=== PATIENT | female | born 1945 | race Caucasian/White ===

== ENCOUNTER 2025-02-23 08:21 | Inpatient (IN) | payer MEDICARE, SELFPAY ==
[2025-02-20] VITALS (12 sets, daily range): BP systolic 110–142; BP diastolic 56–87; PULSE 81; BMI 24.9; BMI 25.3
[2025-02-20 16:29] LABS: % Basophils 0.8 % (0-2); % Eosinophils 2.4 % (0-6); % Immature Granulocytes 0.3 % (0-0.5); % Monocytes 6.9 % (1.7-9.3); % Neutrophils 62.6 % (42.2-75.2); Absolute Basophils 0.1 10^3/uL (0-0.2); Absolute Eosinophils 0.2 10^3/uL (0-0.7); Absolute Lymphocytes 2.4 10^3/uL (1.2-3.4); Absolute Monocytes 0.6 10^3/uL (0.1-0.6); Absolute Neutrophils 5.6 10^3/uL (1.4-6.5); Hematocrit 42.2 % (37.0-47.0); Hemoglobin 14.1 g/dL (12.0-16.0); Mean Corp Hgb Conc. 33.4 g/dL (33.0-37.0); Mean Corpuscular Hgb 28.3 pg (27.0-31.0); Mean Corpuscular Volume 84.6 fL (81.0-99.0); Mean Platelet Volume 10.3 fL (7.4-10.4); Nucleated Red Blood Cells % 0 %; Platelet Count 198 10^3/uL (130-400); Red Blood Cell Count 4.99 10^6/uL (4.20-5.40); Red Cell Dist. Width 15.8 % (11.5-14.5)
[2025-02-20 16:40] LABS: ALT (SGPT) 19 U/L (0-35); AST (SGOT) 23 U/L (14-36); Albumin 4.3 g/dl (3.5-5.0); Alkaline Phosphatase 56 U/L (38-126); Blood Urea Nitrogen 22 mg/dl (7-17); Calcium 9.4 mg/dl (8.4-10.2); Carbon Dioxide 30 mmol/L (22-30); Chloride 109 mmol/L (98-107); Estimated Creatinine Clearance 64 ml/min; Glucose 134 mg/dl (70-99); Potassium 4.4 mmol/L (3.5-5.1); Sodium 143 mmol/L (135-145); Total Bilirubin 0.6 mg/dl (0.2-1.3); Total Protein 6.7 g/dl (6.3-8.2); eGFR > 60.00
[2025-02-20 16:51] LABS: NT-proBNP 90.6 pg/ml; Troponin I < 0.012 ng/ml
--- NOTE | 2025-02-20 17:35 | ED.GENMED ---
History of Present Illness
General
Chief Complaint: Chest Pain
Source: patient
Exam Limitations: none
Time Seen by Provider: 02/20/25 17:34
Nursing documentation reviewed up to this point in time: agreed with
History of Present Illness
History of Present Illness:
79-year-old female presents emergency ferment due to chest pain and left arm pain for the past 4 days, dyspnea on exertion, fatigue. This feels similar to when she had a blockage requiring a stent. She is visiting from [place]. She has a cardiac
catheterization scheduled for March 02 and [place].
Past History
Past History
ED Past Medical History: GERD, HTN, Hypercholesterolemia, VA and Hypothyroidism
ED Past Surgical History: Bowel resection, Cardiac and Cholecystectomy
Social History
Tobacco: Non-smoker
Alcohol: None
Drug: None
Living: with family
Review of Systems
Review of Systems
Allergies reviewed?: Yes
All Other Systems: Not applicable
Constitutional: Reports fatigue
EENT: Reports no symptoms
Respiratory: Reports trouble breathing
Cardiac: Reports chest pain
ABD/GI: Reports no symptoms
: Reports no symptoms
Musculoskeletal: Reports no symptoms
Skin: Reports no symptoms
Neurological: Reports no symptoms
Endocrine: Reports no symptoms
Hematologic/Lymphatic: Reports no symptoms
Psychiatric: Reports no symptoms
Phy Exam
Physical Exam
Physical Exam:
Physical Exam
General: no apparent distress, not acutely ill
Neck: supple. no meningeal signs. normal posterior pharynx
Heart: s1/s2 regular rate and rhythm, no murmur. equal radial
pulses. Midline sternotomy scar
HEENT: Pupils equal round reactive to light, EOMI
Lungs: no acute respiratory distress. clear bilaterally
Abdomen: normal bowel sounds. not tender. no CVAT
Neuro: alert and oriented. no focal neurological deficits cranial nerves II through XII intact
Skin: no rash
Psychiatric: well kept. interactive and cooperative
Extremities: no edema. no calf tenderness. negative homans. good distal pulses
Scores
Heart Score for Chest Pain Patients
STEMI patient?: No
History: Highly Suspicious
ECG: Normal
Age: >/= 65 years
Risk Factors: >/= 3 Risk Factors or History of CAD
Troponin: </= Normal Limit
Heart Score for Chest Pain Patients: 6
Heart Score Risk: 20.3% MACE over next 6 weeks
Course
Orders/Labs/Results
Orders:
Orders
02/20/25 Breakfast
Cholesterol Lowering
At Your Request: Full Participation
Does patient need a safe tray?: No
Cholesterol Lowering: Sodium, 2 Gram
02/20/25 15:48
ECG [Electrocardiogram (*1)] Urgent
Reason for Study: Chest Pain
EKG- Treatment ONCE
02/20/25 16:19
BNP [NT-proBNP] Urgent
Complete Blood Count/With Diff Urgent
Comprehensive Metabolic Panel Urgent
Troponin I Urgent
02/20/25 17:25
CXR2 [CR Chest - 2 Views ] Urgent
Comment:
Reason For Exam: chest pain/SOB
02/20/25 18:34
Aspirin Chewable [Low Strength Aspirin] 324 mg PO NOW STA
02/20/25 19:04
Nitroglycerin Sublingual [Nitrostat (Sublingual)] 0.4 mg SL NOW STA
02/20/25 19:20
Troponin I Urgent
02/20/25 19:27
Nitroglycerin Sublingual [Nitrostat (Sublingual)] 0.4 mg SL NOW STA
02/20/25 19:43
Admit/Transfer Patient As Directed
Co-Sign Provider:
Level of Care: Observation services
Assign to:: Telemetry
Physician / Group: [email or web address]
Diagnosis: CP concerning for Angina /ACS
Reason for Telemetry: Chest Pain syndromes
Date to Stop Telemetry: 02/22/25
Time to Stop Telemetry: 11:00
Expected length of stay greater than two midnights?: Yes
ELOS- Estimated Length of Stay in days: 3
I certify the patient meets the requirements for IP care: Yes
02/20/25 19:44
Code Status As Directed
Resuscitation Status: Full Code
02/20/25 21:37
Electrocardiogram (*1) Q6H
Reason for Study: Chest Pain
Comment: at admission and Q3H for total of 3, to be done with each troponin
Pantoprazole [Protonix] 40 mg PO BID
02/20/25 21:37
CARDIOLOGY CONSULT Routine
Consulting Provider: Eladio Davis
Was physician already notified: Yes
Reason for consult: CP concerning for angina, eval for ACS
Activity As Directed
Activity Level: With Assistance
INT (Intravenous Needle Therapy) As Directed
Comment: maintain peripheral IV access
Intake/ Output As Directed
Frequency: Per unit guidelines
Vital Signs As Directed
Frequency: q4h
Weight As Directed
Frequency: Daily
DX Deep Vein Thrombosis Video Routine
02/20/25 22:44
Glycohemoglobin (HgbA1c) Routine
Troponin I Q3H
Comment: at admit & Q3H for 3 total including ED draws, obtain ECG with each level
02/21/25 03:37
Electrocardiogram (*1) Q6H
Reason for Study: Chest Pain
Comment: at admission and Q3H for total of 3, to be done with each troponin
02/21/25 06:00
Cardiovascular Evaluation IN AM
Comprehensive Metabolic Panel IN AM
02/21/25 08:00
Amlodipine [Norvasc] 2.5 mg PO DAILY
Aspirin Low Dose EC [Aspir Low (Enteric Coated)] 81 mg PO DAILY
Clopidogrel Bisulfate [Plavix] 75 mg PO DAILY
ISOSORBIDE MONOnitrate ER [Imdur (Extended Release)] 30 mg PO DAILY
Levothyroxine [Synthroid] 75 mcg PO DAILY
Paroxetine [Paxil] 10 mg PO DAILY
Rosuvastatin Calcium [Crestor] 40 mg PO DAILY
02/21/25 09:37
Electrocardiogram (*1) Q6H
Reason for Study: Chest Pain
Comment: at admission and Q3H for total of 3, to be done with each troponin
02/21/25 18:00
Enoxaparin Sodium [Lovenox] 40 mg SC QPM
02/22/25 11:00
DC Protocol for Telemetry ONCE
Abnormal Lab Results
02/20/25
16:19
RDW 15.8 H %
(11.5-14.5)
Chloride 109 H mmol/L
(98-107)
BUN 22 H mg/dl
(7-17)
Glucose 134 H mg/dl
(70-99)
02/20/25 16:19
02/20/25 16:19
Vital Signs
Initial and Last Documented VS:
Initial Vital Signs
Temp Pulse Resp BP Pulse Ox
98.0 F 85 17 124/70 98
02/20/25 15:55 02/20/25 15:55 02/20/25 15:55 02/20/25 15:55 02/20/25 15:55
Last Documented Vital Signs
Temp Pulse Resp BP Pulse Ox
98.0 F 69 18 129/65 98
02/20/25 23:30 02/20/25 23:30 02/20/25 23:30 02/20/25 23:30 02/20/25 23:30
MDM/Problems Addressed
Differential Diagnosis Includes:
ACS, PE
MDM/Problems Addressed:
79-year-old female with angina, similar to prior VA. Admit to hospitalist for further evaluation, discussed with cardiology, Dr. Davis, who will see on consult.
Acute Exacerbation and/or Progression of Chronic Illness: CAD
*Radiology
Radiology exam reviewed: radiology read reviewed (Chest x-ray no acute findings)
*Pulse Oximetry
Patient hypoxic: no (98% room air)
*EKG
Interpreted by ED Provider?: Yes
EKG Intrepretation Date: 02/20/25
EKG Intrepretation Time: 15:55
Interpretation: normal
Comparison EKG: no comparison EKG present
Heart Rate: 81
Rate: normal
Rhythm: sinus
[place]: normal axis
Interval: normal interval
QRS Pattern: normal QRS
Ischemia: no ischemia
*Iron Assorter Interpretation
Rate: normal
Interpretation: normal
Heart Rate: 70
Rhythm: sinus
*Critical Care Note
Total Time (30-74mins, 75-104mins- exclusive of procedures): Not Applicable
Patient Management
Social determinants of health affecting care: Living situation and Strong social support
Discussion with other providers: Hospitalist and Rejector (Cardiology, Dr. Davis)
Escalation/DeEscalation of care consider admission/obs:
Admit indicated
ED Attending Note
-
Portions of this chart may have been created with voice recognition software.� Occasional wrong word or��sound alike� substitutions may have occurred due to the inherent limitations of voice recognition software.
Discharge Plan
Departure
Patient Disposition: Admit
Date of Disposition: 02/20/25
Time of Disposition: 19:11
Admit to: IVU
Presentation/result/management discussed w/ accepting MD/DO: Hospitalist
Patient with high blood pressure during this ER visit?: No
Condition: Good
Discharge Problem:
Chest pain due to CAD
Interventions
Interventions:
*Risk Screen - Suicide Last Done: 02/20/25 15:59
*General Assessment Last Done: 02/20/25 15:59
*Neglect/Abuse Screening Last Done: 02/20/25 15:59
*ED- Fall Risk Assessment Last Done: 02/20/25 16:10
*ED COVID-19 Vaccine History Last Done: 02/20/25 15:59
*Nursing Disposition Last Done: 02/20/25 21:26
ED- Cardiac Assessment Last Done: 02/20/25 16:20
Discharge Date and Time
Discharge Date/Time: 02/20/25 21:30
[2025-02-20] MEDS: LOW STRENGTH ASPIRIN 324 MG PO (18:42)
[2025-02-20] MEDS: NITROSTAT (SUBLINGUAL) 0.4 MG SL ×2 (19:08→19:27)
--- NOTE | 2025-02-20 19:28 | HPS.HSE ---
Family Physician
-
Family Physician: AKHIL REYES
Chief Complaint
-
CP with radiation to Lt. arm
History of Present Illness
HPI
79M visiting from [place] HX [place], CAD with stents , CABG x 3 V ( 2019) HTN, Hypercholesterolemia, GERD and Hypothyroidism seen at ER:
- evaluation for chest pain and left arm pain for the past 4 days
- dyspnea on exertion, fatigue.
- this feels similar to when she had a blockage requiring a stent.
- She has a cardiac catheterization scheduled for March 02 and [place].
Medical History
Past Medical History
Past Medical History: Reports GERD, HTN, Hypercholesterolemia, Hypothyroidism and IN
Past Surgical History: Reports Bowel Resection, Cardiac and Cholecystectomy
Social History
Tobacco: Non-smoker
Alcohol: None
Drug: None
Living: With Family
Family History
Family History: Not pertinent
Allergies / Home Medications
Allergies reflects when Allergies were last updated in [employer].
Home Medications with original date entered in [employer]
Allergy/Medication List:
Allergies
Allergy/AdvReac Type Severity Reaction Status Date / Time
No Known Allergies Allergy Verified 02/20/25 15:48
Home Medications
amlodipine 2.5 mg tablet 5 mg PO DAILY 02/20/25
aspirin 81 mg tablet 81 mg PO DAILY 02/20/25
clopidogrel 75 mg tablet 75 mg PO DAILY 02/20/25
isosorbide dinitrate 30 mg tablet 30 mg PO DAILY 02/20/25
levothyroxine 75 mcg tablet 75 mcg PO DAILY 02/20/25
omega-3 fatty acids-fish oil 684 mg-1,200 mg capsule,delayed release 1 cap PO DAILY 02/20/25
pantoprazole 40 mg tablet,delayed release 40 mg PO BID 02/20/25
paroxetine HCl 10 mg tablet (Paxil) 10 mg PO DAILY 02/20/25
rosuvastatin 40 mg tablet 40 mg PO DAILY 02/20/25
Review of Systems
-
Constitutional: Reports No Symptoms
EENT: Reports No Symptoms
Respiratory: Reports No Symptoms
Cardiac: Reports See HPI and Chest Pain
Abdomen/GI: Reports No Symptoms
: Reports No Symptoms
Musculoskeletal: Reports No Symptoms
Skin: Reports No Symptoms
Neurological: Reports No Symptoms
Endocrine: Reports No Symptoms
Hematologic/Lymphatic: Reports No Symptoms
Psych: Reports No Symptoms
Physical Exam
Vital Signs
Vital Signs
Temp Pulse Resp BP Pulse Ox
98.0 F 67 17 113/56 93
02/20/25 15:55 02/20/25 18:30 02/20/25 18:30 02/20/25 19:13 02/20/25 18:30
Physical Exam
General: Well Developed, Well Nourished and No Apparent Distress
HEENT: NormoCephalic, Moist mucous membranes and Atraumatic
Respiratory: Clear
Cardiac: S1/S2 and Regular Rhythm; No Murmur or Rub
GI: Soft, Non Tender, Non Distended and Normal Bowel Sounds; No Organomegaly
Rectal: Deferred by Provider
Musculoskeletal: No Clubbing, No Cyanosis and No Edema
Skin: No Rash
Neuro: Nonfocal/grossly intact
Laboratory Results
-
02/20/25 16:19
02/20/25 16:19
Laboratory Results
Total Bilirubin 0.6 mg/dl (0.2-1.3) 02/20/25 16:19
AST 23 U/L (14-36) 02/20/25 16:19
ALT 19 U/L (0-35) 02/20/25 16:19
Alkaline Phosphatase 56 U/L (38-126) 02/20/25 16:19
Troponin I < 0.012 ng/ml 02/20/25 16:19
Data Reviewed
-
Medical Tests (Nuc Med, Echo, EKG etc): Report Reviewed by me
Lab Data: Labs Reviewed by me
Impression/Plan
-
Selected Entries
02/20/25
15:55
Temp 98.0 F
Pulse 85
Resp Rate 17
Blood pressure 124/70
SaO2 98
Oxygen Mode of Delivery Room air
Labs
02/20/25 02/20/25
16:19 19:20
WBC 9.0
Hgb 14.1
Plt Count 198
Chloride 109 H
BUN 22 H
Creatinine 0.6
eGFR > 60.00
Troponin I < 0.012 Pending
Auh-N-Rwigufyzxfr Pept 90.6
EKG
NORMAL SINUS RHYTHM
POSSIBLE INFERIOR INFARCT , AGE UNDETERMINED
ABNORMAL ECG
NO PREVIOUS ECGS AVAILABLE
NO PRIOR hospitalist admission:
ASSESSMENT & PLAN
CP - feels similar to when she had a blockage requiring a stent. ? [place]
NEG first TPNI
Nl EKG
HX [place], CAD with stents , CABG x 3 V ( 2019)
- dyspnea on exertion, fatigue.
- She has a cardiac catheterization scheduled for March 02 and [place].
- c/w CAREER BASED INTERVENTION COORDINATOR DAPL
- SL NTG PRN
- on IMN 30mg daily
- Case DCA Card: Pending 2nd TPNI. If POS and still have CP , to start NTG gtt +Heparin gtt and sips of clear after MN incase emergent Cath ( Case [facility] House EDUCATION COORDINATOR )
HLD
- on rosuvastatin 40 mg PO DAILY
Benign HTN - controlled
- amlodipine 5 mg PO DAILY
Hypothyroid
- on levothyroxine 75 mcg PO DAILY
Depression
- on Paxil 10mg daily
DVT Px:LMWH
Full code
Obs TLM
[2025-02-20 19:52] LABS: Troponin I < 0.012 ng/ml
[2025-02-20] MEDS: PROTONIX PO (22:22)
[2025-02-20 23:16] LABS: Troponin I < 0.012 ng/ml
[2025-02-21] VITALS (9 sets, daily range): BP systolic 101–139; BP diastolic 62–93; PULSE 78; BMI 25.0; BMI 25.1
--- NOTE | 2025-02-21 02:56 | PTCARENOTE ---
Patient received from ED via stretcher and ambulated to room. She was oriented to room and surroundings. Third troponin was negative. NSR on Tele. HRR Patient states CP dull 10/26. BS CTA. Patient uses CPAP. Order obtained. Patient sleeping
quietly at this time.
[2025-02-21 07:05] LABS: ALT (SGPT) 17 U/L (0-35); AST (SGOT) 24 U/L (14-36); Albumin 3.8 g/dl (3.5-5.0); Alkaline Phosphatase 47 U/L (38-126); Blood Urea Nitrogen 21 mg/dl (7-17); Calcium 8.6 mg/dl (8.4-10.2); Carbon Dioxide 22 mmol/L (22-30); Chloride 113 mmol/L (98-107); Estimated Creatinine Clearance 64 ml/min; Glucose 110 mg/dl (70-99); HDL Cholesterol 34 mg/dl; LDL Cholesterol, Calculated 23 mg/dl; Potassium 4.4 mmol/L (3.5-5.1); Sodium 143 mmol/L (135-145); Total Bilirubin 0.5 mg/dl (0.2-1.3); Total Cholesterol 98 mg/dl (50-199); Triglyceride 205 mg/dl (10-149); Very Low Density Lipoprotein 41 mg/dl (0-30); eGFR > 60.00
--- NOTE | 2025-02-21 08:08 | CON.CAR ---
Consultation
Consultation Request
Date/Time Consultation Requested: February 21 2025
Date/Time Consultation Performed: February 21 2025
Requesting Provider: Dr Siegel
Performing Provider: Dr Randall
Reason for Consultation: Chest pain
Medical History
-
Chief Complaint: chest pain
History of Present Illness:
She is 79 yo female with PMH CABG X3 2019 with PCI before that in setting of acute RI at [facility] in [place], history of hyperlipidemia who is extremely active. She exercises regularly without symptoms. She was painting a
house and developed chest pain with radiation down her left arm. She had first thought it was from painting. She developed tachycardia as well. She is sent a few pictures of her heart rate on her smart watch to her mining engineer. She was set up
for a cardiac catheterization after discussion with her mining engineer over the phone. Cardiac catheterization is scheduled for mid February in [place]. Shortly after this episode she flew here to visit an old friend. She was told if she developed
chest pain that she should go to the nearest hospital. She developed chest pressure and she has had significant fatigue with exertion and shortness of breath. She felt that the chest pressure was similar to the pain she had prior to her stent.
She underwent stenting in the setting of RI prior to her eventual CABG. She denies having a stress test since her CABG. Her last echo showed preserved LV function a few years ago she states. She was visiting a friend here who she has not seen in
20 years.
Past Medical History
Hx CABG
Hx PCI
HTN
Hyperlipidemima
GERD
Bowel Resection 40 years ago secondary to diverticulitis.
Cholecystectomy
Oophorectomy for benign tumor with hysterectomy age 51
Social History
Tobacco: Non-Smoker
Alcohol: Occasional
Drug: None
Personal:
Living: Alone
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
Family History
Family History: Reviewed & Not Pertinent (Mother age 94 father of cancer age 72 and was a smoker and a sister age 77 of cancer and was a smoker.)
Allergies / Home Medications
Allergy/AdvReac Type Severity Reaction Status Date / Time
No Known Allergies Allergy Verified 02/20/25 15:48
�Medication �Instructions �Recorded �Confirmed �Type
amlodipine 2.5 mg tablet 5 mg PO DAILY 02/20/25 02/20/25 History
aspirin 81 mg tablet 81 mg PO DAILY 02/20/25 02/20/25 History
clopidogrel 75 mg tablet 75 mg PO DAILY 02/20/25 02/20/25 History
isosorbide dinitrate 30 mg tablet 30 mg PO DAILY 02/20/25 02/20/25 History
levothyroxine 75 mcg tablet 75 mcg PO DAILY 02/20/25 02/20/25 History
omega-3 fatty acids-fish oil 684 1 cap PO DAILY 02/20/25 02/20/25 History
mg-1,200 mg capsule,delayed release
pantoprazole 40 mg tablet,delayed 40 mg PO BID 02/20/25 02/20/25 History
release
paroxetine HCl 10 mg tablet (Paxil) 10 mg PO DAILY 02/20/25 02/20/25 History
rosuvastatin 40 mg tablet 40 mg PO DAILY 02/20/25 02/20/25 History
Review of Systems
-
History Source: Patient
All other systems: Negative unless noted
Respiratory: Trouble Breathing
Cardiac: Chest Pain and Palpitations
Musculoskeletal: Other (Pain down her left arm)
Physical Exam
Vital Signs
Temp Pulse Resp BP Pulse Ox
97.7 F 68 16 129/68 96
02/21/25 07:35 02/21/25 07:35 02/21/25 07:35 02/21/25 07:35 02/21/25 07:35
Physical examination:
General: No acute distress, AAOX3
Neck: Negative JVD
Heart: Regular, Negative S3 positive S1/S2, Negative S4, No murmur
Lungs: CTA b/l, negative wheezes/rales/rhonchi
Abd: Positive BS, NT/ND, neg rebound/rigidity/guarding
Ext: Negative cyanosis/clubbing/edema
Neuro: nonfocal
Lab Results
02/20/25 16:19
02/21/25 05:14
Troponin I < 0.012 ng/ml 02/20/25 22:44
Anb-Q-Vxujpexrsuz Pept 90.6 pg/ml 02/20/25 16:19
Impression / Plan
-
.
Primary mining engineer: Dr. Cabezas [facility]
Impression:
[place] CABG X3 2019 at [facility]
Hx [place] with PCI to unknown vessel 2019 at [facility]
HTN
Hyperlipidemima
GERD
Bowel Resection 40 years ago secondary to diverticulitis.
Cholecystectomy
Oophorectomy for benign tumor with hysterectomy age 51
Plan:
Given her significant exertional symptoms which are similar to her previous PCI and RI and significant cardiac history including prior CABG, RI and PCI we discussed options. She was already scheduled for cardiac catheterization at [place].
We did discuss given her progressive symptoms that she could be considered for cardiac catheterization during this hospitalization and she was agreeable to this.
She is tentative for cardiac catheterization tomorrow February 22, 2025.
Her home medications include dual antiplatelet therapy including aspirin and clopidogrel. Continue this as well as Imdur. Continue amlodipine.
Add low dose Toprol Xl 12.5 mg daily.
Request records from her outside mining engineer.
Check echocardiogram.
Troponins were negative.
Heart rate and blood pressure are currently stable.
Continue telemetry monitoring
Lipids reviewed and LDL is well-controlled at 23, HDL was 34 and triglycerides 205. Continue statin therapy.
Data Reviewed
-
EKG: Tracing Personally Visualized and interpreted
Labs: Labs Reviewed by me
Old Records: Requested
[2025-02-21 09:51] LABS: Glycohemoglobin (HgbA1c) 5.9 % (4.0-5.6)
[2025-02-21] MEDS: CRESTOR 40 MG PO (10:33)
[2025-02-21] MEDS: ASPIR LOW (ENTERIC COATED) 81 MG PO (10:33)
[2025-02-21] MEDS: IMDUR (EXTENDED RELEASE) 30 MG PO (10:34)
[2025-02-21] MEDS: NORVASC 2.5 MG PO (10:34)
[2025-02-21] MEDS: PLAVIX 75 MG PO (10:34)
[2025-02-21] MEDS: SYNTHROID 75 MCG PO (10:35)
[2025-02-21] MEDS: PROTONIX 40 MG PO ×2 (10:35→21:13)
[2025-02-21] MEDS: FLUSH (NSS) 1 FLUSH IV (10:36)
[2025-02-21] MEDS: PAXIL PO (10:48)
--- NOTE | 2025-02-21 11:32 | W.PN.HOSP.TC ---
Today's Communication/Plan
-
transfer to IVU
for cardiac cath in AM
Assessment / Plan
Assessment / Plan
pt is an 79 year old female
chest pain (hx of CT with stents in past, CABG x 3)--likely [place]--feels similar to when she had a blockage requiring a stent--troponin neg x 3--apprec cards--for cath in AM (had one for March 02 in [place])--cont asa/plavix--SL NTG prn--cont
imdur--may need increase if BP can tolerate--transfer to IVU
HLD- on rosuvastatin 40 mg PO DAILY
Essential HTN - controlled - amlodipine 5 mg PO DAILY
Hypothyroid - on levothyroxine 75 mcg PO DAILY
Depression - on Paxil 10mg daily
DVT proph
code status--full code
Anticipated Discharge: 24 - 48 hours
Subjective/Interval History
-
Date of Service: February 21, 2025
pt still with some residual chest pressure to left shoulder and back
Objective Data
-
Labs:
Laboratory Results
02/21/25
05:14
Sodium 143
Potassium 4.4
Chloride 113 H
Carbon Dioxide 22
BUN 21 H
Creatinine 0.6
Glucose 110 H
Calcium 8.6
Total Bilirubin 0.5
AST 24
ALT 17
Alkaline Phosphatase 47
Vital Signs:
max temp for 24 hours
02/20/25
23:30
Temp 98.0 F
Vital Signs
Temp Pulse Resp BP Pulse Ox
97.8 F 68 16 119/66 93
02/21/25 11:02 02/21/25 11:02 02/21/25 11:02 02/21/25 11:02 02/21/25 11:02
Review of Systems
-
All other systems: Reviewed and negative
Physical Exam
-
General: Well Developed, Well Nourished and No Apparent Distress
HEENT: Normocephalic and Atraumatic
Respiratory: Clear to Auscultation; Negative Wheezes or Rhonchi
Cardiac: Regular Rhythm and S1/S2; Negative Murmur
GI: Soft, Nontender, Nondistended and Normal Bowel Sounds
Musculoskeletal: No Clubbing, No Cyanosis and No Edema
Neuro: Awake and Alert
Psych: Calm
[2025-02-21] MEDS: TOPROL XL 12.5 MG PO (12:04)
[2025-02-21] MEDS: CLOBETASOL PROPIONATE 0.05% CREAM 1 APPLIC TOPICAL (13:56)
--- NOTE | 2025-02-21 14:13 | PTCARENOTE ---
Pt mentioned to RN that she didn't say anything to any of the physicians that were in to see her, but she was having bilateral leg pain, posterior while she was having the chest pain. She said now her legs are just tender, but discomfort still
present of legs. No edema noted, no redness, pulses wnl. Dr. Poole made aware of above.
--- NOTE | 2025-02-21 15:53 | PTCARENOTE ---
patient arrived from the 4th floor, monitor on and sign off completed. monitor shows SB, VSS. patient weight 66.2kg and height 5feet 4 inches. INT in right forearm flushes well. patient stated that she has heaviness in chest, doesn't want anything
for it. patient also c/o bilat leg pain, Dr. Suarez aware by previous RN. oriented patient to room and surroundings.
--- NOTE | 2025-02-21 16:04 | PTCARENOTE ---
Provided report to Sandy in IVU. Transported pt with belongings to rm [id number].
[2025-02-21] MEDS: LOVENOX 40 MG SC (17:37)
--- NOTE | 2025-02-21 23:47 | PTCARENOTE ---
Assumed care of the pt @ 1900 Pt is AAOx3 independent in the room SB/SR on the monitor. VSS POC discussed with pt including NPO after mn for Cath. Call ponce within reach.
[2025-02-22] VITALS (8 sets, daily range): BP systolic 97–126; BP diastolic 56–68; PULSE 59; BMI 24.8
[2025-02-22 04:57] LABS: Hematocrit 43.1 % (37.0-47.0); Hemoglobin 14.1 g/dL (12.0-16.0); Mean Corp Hgb Conc. 32.7 g/dL (33.0-37.0); Mean Corpuscular Hgb 27.8 pg (27.0-31.0); Mean Platelet Volume 10.9 fL (7.4-10.4); Platelet Count 195 10^3/uL (130-400); Red Blood Cell Count 5.07 10^6/uL (4.20-5.40); Red Cell Dist. Width 15.5 % (11.5-14.5); White Blood Cell Count 8.1 10^3/uL (4.8-10.8)
[2025-02-22 05:07] LABS: Blood Urea Nitrogen 16 mg/dl (7-17); Calcium 9.2 mg/dl (8.4-10.2); Carbon Dioxide 24 mmol/L (22-30); Chloride 113 mmol/L (98-107); Estimated Creatinine Clearance 64 ml/min; Glucose 124 mg/dl (70-99); Potassium 4.7 mmol/L (3.5-5.1); Sodium 142 mmol/L (135-145); eGFR > 60.00
[2025-02-22] MEDS: ASPIR LOW (ENTERIC COATED) 81 MG PO (08:41)
[2025-02-22] MEDS: SYNTHROID 75 MCG PO (08:41)
[2025-02-22] MEDS: PLAVIX 75 MG PO (08:41)
[2025-02-22] MEDS: PAXIL 10 MG PO (08:41)
[2025-02-22] MEDS: TOPROL XL 12.5 MG PO (08:42)
[2025-02-22] MEDS: NORVASC 2.5 MG PO (08:42)
[2025-02-22] MEDS: PROTONIX 40 MG PO ×2 (08:42→20:09)
[2025-02-22] MEDS: IMDUR (EXTENDED RELEASE) 30 MG PO (08:42)
[2025-02-22] MEDS: CRESTOR 40 MG PO (08:42)
--- NOTE | 2025-02-22 08:55 | PTCARENOTE ---
[id number] patient this am ambulating in room, patient still c/o chest heaviness, monitor shows NSR, VSS. patient remains NPO for heart cath today.
--- NOTE | 2025-02-22 10:49 | W.PN.HOSP.TC ---
Addendum entered and electronically signed by Prasanna Tucker MD 02/22/25 15:59:
I saw and evaluated the patient. I reviewed the resident�s note and agree with findings and plan as documented in the resident�s note.
chest pain (hx of [place] with stents in past, CABG x 3)--likely [place]--feels similar to when she had a blockage requiring a stent--troponin neg x 3--apprec cards--for cath in AM (had one for March 02 in [place])--cont asa/plavix--SL NTG prn--cont
imdur--patient was intended to get left heart catheterization although cardiology needs previous bypass/heart catheterization record to better understand patient baseline. 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
catheterization has been postponed to 02/23 for this reason.
HLD- on rosuvastatin 40 mg PO DAILY
Essential HTN - controlled - amlodipine 5 mg PO DAILY
Hypothyroid - on levothyroxine 75 mcg PO DAILY
Depression - on Paxil 10mg daily
DVT proph - lovenox
code status--full code
Original Note:
Today's Communication/Plan
-
.
Assessment / Plan
Assessment / Plan
79 F PMHx GERD, HTN, HLD, and CAD w/ prior PCI and subsequent CABG x 3 who is visiting from [place].
1. Unstable Angina
- Hx of [place] with PCI and CABG x 3 in past
- Symptoms similar to when she had blockage requiring stent
- Troponin neg x 3
- Continue DAPT
- SL NTG prn
- Continue Imdur, Toprol 12.5 mg added by cards
- Cath scheduled for this AM, f/u results
2. HLD-
- rosuvastatin 40 mg PO DAILY
3. Essential HTN
- controlled on amlodipine 5 mg PO DAILY
4. Hypothyroid
- on levothyroxine 75 mcg PO DAILY
5. Depression - on Paxil 10mg daily
DVT proph
code status--full code
Anticipated Discharge: 24 - 48 hours
Subjective/Interval History
-
Date of Service: February 22, 2025
Patient seen and examined while resting comfortably in bed. Patient with continued chest pressure this morning, but denies worsening. Notes that the pain is not as worse as the exertional pain that brought her into the hospital. Scheduled for heart
cath at 12:00pm.
Objective Data
-
Labs:
Laboratory Results
02/22/25
04:33
WBC 8.1
Hgb 14.1
Hct 43.1
Plt Count 195
Sodium 142
Potassium 4.7
Chloride 113 H
Carbon Dioxide 24
BUN 16
Creatinine 0.6
Glucose 124 H
Calcium 9.2
Vital Signs:
Vital Signs
Temp Pulse Resp BP Pulse Ox
98.2 F 60 18 118/68 97
02/22/25 07:55 02/22/25 09:15 02/22/25 07:55 02/22/25 08:42 02/22/25 08:30
I&O
02/21/25 02/22/25 02/23/25
06:59 06:59 06:59
Intake Total 120 / 120
Balance 120 / 120
Review of Systems
-
History Source: Patient
Constitutional: Reports No Symptoms
Respiratory: Reports No Symptoms
Cardiac: Reports Chest Pain
Abdomen/GI: Reports No Symptoms
Neuro: Reports No Symptoms
Physical Exam
-
General: Well Developed, Well Nourished and No Apparent Distress
HEENT: Normocephalic, Atraumatic and Moist Mucous Membranes
Respiratory: Clear to Auscultation; Negative Wheezes, Rales or Rhonchi
Cardiac: Regular Rhythm and S1/S2; Negative Murmur
GI: Soft and Nontender
Musculoskeletal: No Clubbing, No Cyanosis and No Edema
Skin: Warm and Dry
Neuro: Awake, Alert and Oriented
Psych: Calm
Data Reviewed
-
Diagnostic Radiology: Report Reviewed by me
Medical Tests (Nuc Med, Echo etc): Image personally visualized and interpreted, Report Reviewed by me and Other (EKG)
Labs: Labs Reviewed by me
--- NOTE | 2025-02-22 11:52 | W.PN.CARDCBS ---
Addendum entered and electronically signed by Edilia Kenney DO 02/22/25 12:36:
I saw and examined the patient.
The Floor Associate's note was reviewed and I agree with the note.
Comment: Patient seen and examined. Patient continues to have fatigue but no further episodes of chest pain/pressure. She had been scheduled as an outpatient by her sorting and folding supervisor in [place] for a repeat cardiac catheterization as she noted new
chest pain and exertional fatigue/shortness of breath 1 week prior to coming to this area to visit her friend.
General: No acute distress, AAOX3
Heart: Regular, positive S1/S2, No murmur
Lungs: CTA b/l, negative wheezes/rales/rhonchi
Abd: Positive BS, NT/ND, neg rebound/rigidity/guarding
Ext: no edema
Neuro: nonfocal
Plan:
History of coronary artery disease status post CABG as well as myocardial infarct with PCI in 2019 with new chest pain complaints similar to pre-bypass symptoms worrisome for unstable angina
-She had been in contact with her primary sorting and folding supervisor in [place] and scheduled for a cardiac catheterization on March 02
-Troponin serially undetectable
-New to Toprol XL 12.5 mg daily and tolerating all doses thus far
-Outpatient dose of Imdur ER 30 mg daily has been continued
-Outpatient doses of aspirin and Plavix have been continued
-LDL 23 and outpatient dose of Crestor 40 mg daily has been continued
-Echo ordered by me 02/22/25
-Will try to call her sorting and folding supervisor in [place] to get CABG report to aid in cath
- If chest pain recurs will start IV heparin
- N.p.o. after midnight with plan for left heart catheterization 02/23/2025
Original Note:
Today's Communication / Plan
-
Cath moved to tomorrow due to schedule
Check echo
Impression / Plan
-
.
[place] sorting and folding [place] [facility]:
Ad[place] with chest pain 02/20/25
[place] [facility] [facility]
[place]N
Hyperlipidemia
GERD
Bowel Resection 40 years ago secondary to diverticulitis.
Cholecystectomy
Oophorectomy for benign tumor with hysterectomy age 51
Echo 02/22/25: Study pending
Plan:
-Patient with chest pain and was recommended a cath by her primary sorting and folding supervisor prior to traveling, but thought she would be fine to fly to visit a friend locally. Then had chest pain navigating stairs in friend's home and came to [facility]. Patient
reports identical symptoms to when she needed CABG in 2019
-Troponin serially undetectable
-New to Toprol XL 12.5 mg daily and tolerating all doses thus far
-Outpatient dose of Imdur ER 30 mg daily has been continued
-Outpatient doses of aspirin and Plavix have been continued
-LDL 23 and outpatient dose of Crestor 40 mg daily has been continued
-Echo ordered by me 02/22/25
-Will try to call her sorting and folding supervisor in [place] to get CABG report to aid in cath
Progress Note - Local Telephone Operator
Subjective
Date of Service: February 22, 2025
Feels well, no recurrence of pain
Objective
Labs:
02/22/25 04:33
02/22/25 04:33
Labs
Hgb 14.1 g/dL (12.0-16.0) 02/22/25 04:33
Hct 43.1 % (37.0-47.0) 02/22/25 04:33
Plt Count 195 10^3/uL (130-400) 02/22/25 04:33
Sodium 142 mmol/L (135-145) 02/22/25 04:33
Potassium 4.7 mmol/L (3.5-5.1) 02/22/25 04:33
BUN 16 mg/dl (7-17) 02/22/25 04:33
Creatinine 0.6 mg/dL (0.6-1.0) 02/22/25 04:33
Glucose 124 mg/dl (70-99) H 02/22/25 04:33
Troponins
02/20/25 02/20/25 02/20/25
16:19 19:20 22:44
Troponin I < 0.012 < 0.012 < 0.012
Vital Signs and I&O:
Vital Signs
Temp Pulse Resp BP Pulse Ox
98.6 F 61 18 118/68 96
02/22/25 11:32 02/22/25 11:32 02/22/25 11:32 02/22/25 08:42 02/22/25 11:32
Vital Signs
Temp Pulse Resp BP Pulse Ox
98.6 F 61 18 118/68 96
02/22/25 11:32 02/22/25 11:32 02/22/25 11:32 02/22/25 08:42 02/22/25 11:32
Intake & Output
02/20/25 02/21/25 02/22/25 02/23/25
06:59 06:59 06:59 06:59
Intake Total 120 / 120
Balance 120 / 120
Physical Exam
Physical Exam
GEN: AAOx3
HEENT: MMM
LUNGS: RA. No audible wheeze
CV: SR on tele
EXT: No edema B/L
NEURO: Gross non-focal
SKIN: No rash
--- NOTE | 2025-02-22 12:03 | CM ---
Reviewed chart. Met with Mrs. Elizabeth to review discharge plans. She states prior to admission she resides alone in a one story home with two steps to enter. She states prior to admission she ws independent with ambulation and adls. She states
she has a CPAP Machine and no other DME in the home. She states she has a prescription plan. The discharge plan is to return home with medically stable.
--- NOTE | 2025-02-22 13:02 | W.PN.UPDATE ---
Update Note
Progress Note Update
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 Was sent to a medical record request line and left a detailed message asking for a call back and also left fax number. Will follow up.
--- NOTE | 2025-02-22 15:56 | PTCARENOTE ---
patient will not be going to clinical lab clerk today, patient very understanding. her friend came to visit her today. patient has no c/o chest heaviness.
[2025-02-22] MEDS: LOVENOX 40 MG SC (17:41)
--- NOTE | 2025-02-22 23:45 | PTCARENOTE ---
Patient received at change of shift resting in the bed. Reports 2 to 3 out of 10 midsternal chest pain radiating to the left chest, describes pain as pressure/heaviness in quality while at rest. The patient reports that when she ambulates/exerts
herself the chest pain increases to a 7 out of 10 and becomes stabbing like in quality. The pain improves with rest per the patient. Spoke with Dr. Wyman regarding these events and no further orders or interventions were placed. Discussed with
the patient to please alert staff if her pain changes or increases especially while at rest. The patient mentioned she is very hesitant to be put on a heparin drip as she had a family member develop a reaction and is worried the same would occur.
The patient remains sinus rhythm on telemetry. Oxygen saturation 95-96% on room air. Plan of care discussed including nothing to eat or drink after midnight in anticipation of cardiac cath tomorrow. Call ponce within reach. Care ongoing.
[2025-02-23] VITALS (14 sets, daily range): BP systolic 85–128; BP diastolic 57–92; BMI 24.8
[2025-02-23 03:48] LABS: Hematocrit 41.2 % (37.0-47.0); Hemoglobin 13.5 g/dL (12.0-16.0); Mean Corp Hgb Conc. 32.8 g/dL (33.0-37.0); Mean Corpuscular Volume 85.3 fL (81.0-99.0); Mean Platelet Volume 10.6 fL (7.4-10.4); Platelet Count 182 10^3/uL (130-400); Red Blood Cell Count 4.83 10^6/uL (4.20-5.40); Red Cell Dist. Width 15.6 % (11.5-14.5); White Blood Cell Count 10.3 10^3/uL (4.8-10.8)
[2025-02-23 04:13] LABS: Blood Urea Nitrogen 18 mg/dl (7-17); Calcium 9.3 mg/dl (8.4-10.2); Carbon Dioxide 25 mmol/L (22-30); Chloride 110 mmol/L (98-107); Estimated Creatinine Clearance 64 ml/min; Glucose 149 mg/dl (70-99); Potassium 4.1 mmol/L (3.5-5.1); Sodium 141 mmol/L (135-145); eGFR > 60.00
[2025-02-23] MEDS: PAXIL 10 MG PO (08:36)
[2025-02-23] MEDS: PROTONIX 40 MG PO (08:36)
[2025-02-23] MEDS: PLAVIX 75 MG PO (08:36)
[2025-02-23] MEDS: CRESTOR 40 MG PO (08:36)
[2025-02-23] MEDS: IMDUR (EXTENDED RELEASE) 30 MG PO (08:36)
[2025-02-23] MEDS: ASPIR LOW (ENTERIC COATED) 81 MG PO (08:36)
[2025-02-23] MEDS: TOPROL XL 12.5 MG PO (08:36)
[2025-02-23] MEDS: NORVASC 2.5 MG PO (08:37)
[2025-02-23] MEDS: SYNTHROID 75 MCG PO (08:37)
--- NOTE | 2025-02-23 10:10 | CM ---
Reviewed chart. Met with Mrs. Elizabeth to review discharge plans. She states she is waiting for her procedure today. She states she is planning on staying with her friend for a few days prior to her flying back to her home. Prior to admission
she resides alone in a one story home with two steps to enter. Prior to admission she was independent with ambulation and adls. She has a CPAP Machine at home and no other DME. She has a prescription plan. Medical work-up inn progress. The
discharge plan is to return home with her friend before returning home when medically stable.
--- NOTE | 2025-02-23 10:17 | W.PN.HOSP.TC ---
Addendum entered and electronically signed by Prasanna Tucker MD 02/23/25 14:47:
I saw and evaluated the patient. I reviewed the resident�s note and agree with findings and plan as documented in the resident�s note.
chest pain (hx of [place] with stents in past, CABG x 3)--likely [place]--feels similar to when she had a blockage requiring a stent--troponin neg x 3--apprec cards--for cath in AM (had one for March 02 in [place])--cont asa/plavix--SL NTG prn--cont
imdur--patient was intended to get left heart catheterization although cardiology needs previous bypass/heart catheterization record to better understand patient baseline coronary anatomy. patient to get heart catheterization today.
HLD- on rosuvastatin 40 mg PO DAILY
Essential HTN - controlled - amlodipine 5 mg PO DAILY
Hypothyroid - on levothyroxine 75 mcg PO DAILY
Depression - on Paxil 10mg daily
DVT proph - lovenox
code status--full code
Original Note:
Today's Communication/Plan
-
.
Assessment / Plan
Assessment / Plan
79 F PMHx GERD, HTN, HLD, and CAD w/ prior PCI and subsequent CABG x 3 who is visiting from [place].
1. Unstable Angina
- Hx of [place] with PCI and CABG x 3 in past
- Symptoms similar to when she had stent thrombosis in past
- Troponin neg x 3
- Continue DAPT
- SL NTG prn
- Continue Imdur, Toprol 12.5 mg added by cards
- Cath scheduled for this AM, f/u results
2. HLD-
- rosuvastatin 40 mg PO DAILY
3. Essential HTN
- controlled on amlodipine 5 mg PO DAILY
4. Hypothyroid
- on levothyroxine 75 mcg PO DAILY
5. Depression - on Paxil 10mg daily
DVT proph
code status--full code
Anticipated Discharge: 24 - 48 hours
Subjective/Interval History
-
Date of Service: February 23, 2025
Patient seen and examined while resting comfortably in bed. Patient was not able to have cath yesterday due to difficulty obtaining past medical records from pantry attendant in [place]. Scheduled to go to cath today at 11. Patient endorses still have
chest pressure, though rates it a 2/10 and notes a marked improvement from presentation. Notes dyspnea on exertion and heart racing when getting up and walking, though returns to baseline while resting. Denies nausea, diaphoresis, SOB at rest,
palpitations at rest or lower extremity edema.
Objective Data
-
Labs:
Laboratory Results
02/23/25
03:30
WBC 10.3
Hgb 13.5
Hct 41.2
Plt Count 182
Sodium 141
Potassium 4.1
Chloride 110 H
Carbon Dioxide 25
BUN 18 H
Creatinine 0.6
Glucose 149 H
Calcium 9.3
Vital Signs:
Vital Signs
Temp Pulse Resp BP Pulse Ox
98.3 F 82 16 111/60 97
02/23/25 07:29 02/23/25 08:37 02/23/25 07:29 02/23/25 08:37 02/23/25 07:29
I&O
02/22/25 02/23/25 02/24/25
06:59 06:59 06:59
Intake Total 120 / 120
Balance 120 / 120
Review of Systems
-
History Source: Patient
Constitutional: Reports No Symptoms
Respiratory: Reports No Symptoms
Cardiac: Reports Chest Pain (pressure-like)
Abdomen/GI: Reports No Symptoms
Musculoskeletal: Reports No Symptoms
Neuro: Reports No Symptoms
Physical Exam
-
General: Well Developed, Well Nourished, No Apparent Distress, Comfortable and Conversant; Negative Respiratory Distress
HEENT: Normocephalic, Atraumatic and Moist Mucous Membranes
Respiratory: Clear to Auscultation; Negative Wheezes, Rales or Rhonchi
Cardiac: Regular Rhythm and S1/S2
GI: Soft and Nontender
Musculoskeletal: No Clubbing, No Cyanosis and No Edema
Skin: Warm and Dry
Neuro: Awake, Alert and Oriented
Psych: Calm
Data Reviewed
-
Labs: Labs Reviewed by me and Discussed with Patient
--- NOTE | 2025-02-23 16:08 | ITS.CL.CATH ---
[facility] - Catheterization
Cardiac Catheterization
Procedure Report:
LEFT HEART CATHETERIZATION
Date of Procedure: February 23, 2025
Referring: Dr. Donis Randall
PROCEDURES:
1. Left heart catheterization with coronary and single-plane left ventriculography
2. Selective saphenous vein graft and FEMI angiography
INDICATION: This is an 79-year-old female with a prior history of high-grade left main stenosis leading to coronary artery bypass grafting. Her last catheterization from several years ago was notable for a high-grade stenosis in the proximal right
coronary artery that was successfully stented with a 3.0 x 22 mm resolute stent with a nice angiographic result. She lives in [place] but was visiting a friend locally when she developed her classic anginal symptoms. She was admitted to
[facility] with serial troponin values being undetectable. She was scheduled for coronary angiography in [place] after she returned from her vacation and the decision was made to proceed with diagnostic angiography while hospitalized.
ACCESS: Right common femoral artery, 6 [place] sheath. Very poor left radial pulse
HEMODYNAMICS : (mmHg)
AO (s/d) : 133/62, 92
LV (s/d) : 136/9
LVEDP : 21
CORONARY ANGIOGRAPHY
Dominance: Right
LEFT MAIN: Small caliber left main. There was no pressure dampening with engagement of a 6 [place] diagnostic catheter. There is an 80% distal left main stenosis involving the origin of the circumflex and LAD
LEFT ANTERIOR DESCENDING: The LAD arises normally from the left main and runs in the anterior interventricular groove. Competitive flow is noted in the first diagonal branch from a widely patent saphenous vein graft and competitive flow was noted
in the mid LAD from a patent MEDINA graft as described below
CIRCUMFLEX: The circumflex is a medium caliber nondominant vessel. OM1 arises very proximally from the circumflex and demonstrates competitive flow from a widely patent saphenous vein graft. The mid circumflex has luminal irregularities and
terminates in a moderate caliber OM 2
RIGHT CORONARY ARTERY: The stent or overlapping stents in the proximal right coronary artery are widely patent.
GRAFT ANGIOGRAPHY:
1. SVG-OM: The saphenous vein graft to the first obtuse marginal branch is widely patent. There is antegrade and retrograde filling of the entire circumflex system.
2. SVG-diagonal: The saphenous vein graft to the first diagonal branch is widely patent
3. MEDINA-LAD: The MEDINA graft to the mid LAD is widely patent with anterograde and retrograde filling of a small caliber LAD
LEFT VENTRICULOGRAPHY: Left ventriculography is performed in KOO projection. The digital single-plane left ventricular ejection fraction is visually estimated at 65% with mild apical hypokinesis.
SEDATION: 40 minutes of procedural sedation was utilized. An independent medical lab specialist was present to assist with and help manage the patient's level of consciousness and physiologic status
RADIATION SUMMARY: Fluoro Time (min): 5.1, Dose (mGy): 289, DAP (Gy.cm2) : 24
Closure Device: 6 [place] Angio-Seal RFA
CONCLUSION
1. Stable coronary anatomy with widely patent MEDINA-LAD, SVG-OM, SVG-diagonal
2. Preserved LV systolic function
RECOMMENDATIONS
1. Continue medical management
2. 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
Copy to: Dr. Cabezas ( ) at [facility]
--- NOTE | 2025-02-23 17:05 | PTCARENOTE ---
received patient from director of cardiac cath lab, right fem. artery approach, dsg. D/I, distal pulse palpable. patient is awake but sleepy, encouraged patient to rest. monitor shows NSR, VSS. patient will be on bedrest until 2004. call ponce within reach.
--- NOTE | 2025-02-23 17:58 | W.DCSUMMARY ---
Discharge Summary
Discharge Data
Date of Admission: 02/20/25
Date of Discharge: 02/23/25
Total time spent discharging patient (in min): 31
-
Pending Results: No
Hospital Course
Dorothy Elizabeth is an 79-year-old female with a past medical history of GERD, hypertension, hypercholesterolemia, myocardial infarction (status post percutaneous coronary intervention as well as 3 coronary artery bypass grafts), and hypothyroidism who
presented to the emergency department at [facility] with chest pain. She described the pain as a pressure that had been lasting for the last 4 days and was rating to the left arm. Additionally, patient also complained of dyspnea on exertion and fatigue.
She stated that it felt similar to when she had previous thrombosis of her stent. Notably, the patient was visiting from [place]. She had initially seen her regular cigar head puncher for similar pains and a cardiac catheterization was scheduled for
March 02 in [place]. However, the patient presented with progressively worsening symptoms.
ED COURSE
Labs in the emergency department were unremarkable. Notably, the patient had 3 negative troponins. BNP was 90.6. Initial EKG showed normal sinus rhythm with an age undetermined possible anterior infarct. Repeat ECG did not show any significant
changes to that. Given the patient's progressively worsening symptoms (in the setting of a scheduled cardiac catheterization on March 02 and [place]), the decision was made to admit the patient for emergent catheterization.
HOSPITALIZATION
The patient was regimen of, however, Toprol 12.5 mg was added to alleviate symptoms. Cardiac cath revealed stable coronary anatomy. All grafts were open and stents were widely patent. Additionally, it revealed a preserved left ventricular
systolic function. The decision was made to continue with medical management. The patient was cleared for discharge on 02/23/25.
DISCHARGE RECOMMENDATIONS
The patient was advised to continue medical management. She can return to her usual home medication regimen. Toprol 12.5 mg daily was added.
Patient was given a CD copy of the angiogram for her to return urologist in [place].
Patient advised to follow-up with her primary cigar head puncher as well as her primary care provider upon return to her home state.
Chest x-ray showed a slight prominence of the right hilum probably related to the pulmonary artery, however an underlying lymphadenopathy or mass cannot be completely excluded. The radiologist advised to consider a follow-up chest CT with IV
contrast for further evaluation.
Patient should follow a low-cholesterol diet.
Patient should refrain from walking more than 10 to 15 minutes at a time.
Patient should refrain from lifting objects heavier than 10-15 pounds.
Patient may shower, but should not soak in a tub.
Discharge Plan
-
Patient Disposition: Home (Routine Discharge)
Discharge Diagnosis/Procedures: Cardiac Catheterization
Condition: Fair
Diet: Low Cholesterol
Activity: Other activity
Additional Activity: No walking more than 10-15 minutes at a time.
No lifting more than 10-15 pounds.
Driving Restrictions: No driving for 24 hours
Bathing Restrictions: No Tub Bathing.
Stand Alone Forms: DC Instructions- Cath/EP Lab
Referrals:
AKHIL REYES [Other] - in one to two weeks
Referral Note: Please give Dr. Reyes the CD of your cath films when you return to his office.
Prescriptions:
New
metoprolol succinate 25 mg Tablet Extended Release 24 Hr
12.5 mg PO DAILY Qty: 30 0RF
Continued
paroxetine HCl [Paxil] 10 mg Tablet
10 mg PO DAILY
amlodipine 2.5 mg Tablet
5 mg PO DAILY
clopidogrel 75 mg Tablet
75 mg PO DAILY
levothyroxine 75 mcg Tablet
75 mcg PO DAILY
isosorbide dinitrate 30 mg Tablet
30 mg PO DAILY
pantoprazole 40 mg Tablet,Delayed Release (Dr/Ec)
40 mg PO BID
aspirin 81 mg Tablet
81 mg PO DAILY
rosuvastatin 40 mg Tablet
40 mg PO DAILY
Elk 3 Fish Oil 684-1,200 mg Capsule,Delayed Release(Dr/Ec)
1 cap PO DAILY
Discharge Orders:
Discharge Patient (As Directed); Ordered 02/23/25
Ordered By: Irina Moses
Care Plan Goals
Care Plan Goals:
Problem: Readiness for enhanced knowledge related to diagnosis and treatment plan
Goal: Understand your diagnosis and treatment plan needs, including medications if applicable.
Instructions: Know your diagnosis, underlying causes and treatment plan options, including medications if applicable. Consult with your health care team to learn about your diagnosis and treatment plan, including medications if applicable.
Discharge Date and Time
Print Language: SOU[place] KORE[place]
[2025-02-23] MEDS: LOVENOX SC (19:19)
[2025-02-23] MEDS: PROTONIX PO (19:19)
--- NOTE | 2025-02-23 20:12 | PTCARENOTE ---
Patient received at change of shift resting in the bed. SR on telemetry. Weaned from 3L NC to room air, oxygen saturation 93% on room air now. Patient denies chest pain or discomfort. Right groin site C/D/I, no evidence of hematoma. Pedal pulse
palpable. Bedrest completed per order, patient ambulated independently in the room. Voiding appropriately. Plan of care discussed including discharge this evening as long as groin site remains stable. Care ongoing.
== END 2025-02-23 21:34 | disposition home or self-care (01) | DRG 287 ==
LOC: IVU 08:21
PROVIDERS: Emergency Medicine; Internal Medicine; Internal Medicine Interventional Cardiology; ADMITTING PHYSICIAN Internal Medicine; ATTENDING PHYSICIAN Hospitalist; EMERGENCY PHYSICIAN Emergency Medicine; OTHER PHYSICIAN Nuclear Medicine Nuclear Cardiology
PROC: B2111ZZ Fluoroscopy of Multiple Coronary Arteries using Low Osmolar Contrast (ICD-10-PCS; 2025-02-23)
PROC: 4A023N7 Measurement of Cardiac Sampling and Pressure, Left Heart, Percutaneous Approach (ICD-10-PCS; 2025-02-23)
PROC: B2151ZZ Fluoroscopy of Left Heart using Low Osmolar Contrast (ICD-10-PCS; 2025-02-23)
DX: I20.0 Unstable angina (principal); K21.9 Gastro-esophageal reflux disease without esophagitis; E78.00 Pure hypercholesterolemia, unspecified; I25.10 Atherosclerotic heart disease of native coronary artery without angina pectoris; I10 Essential (primary) hypertension; I25.2 Old myocardial infarction; E03.9 Hypothyroidism, unspecified; Z79.890 Hormone replacement therapy; F32.A Depression, unspecified; Z79.899 Other long term (current) drug therapy; Z79.02 Long term (current) use of antithrombotics/antiplatelets; Z79.82 Long term (current) use of aspirin; Z90.710 Acquired absence of both cervix and uterus; Z95.1 Presence of aortocoronary bypass graft; Z95.5 Presence of coronary angioplasty implant and graft
CPT/HCPCS: 71046; 80048; 80053; 80061; 83036; 83735; 83880; 84484; 85025; 85027; 93005; 93306; 93459; 94660; 99152; 99153; 99285; C1760; C1894; Q9967